=== PATIENT | male | born 1970 | race Caucasian/White ===

== ENCOUNTER 2017-11-14 12:03 | Emergency (ER) | payer MEDICAID ==
[2017-11-14 12:42] LABS: PLATELET COUNT 202 10^3/uL (150-400)
--- NOTE | 2017-11-14 14:32 | EDPHY ---
H & P Smoking Status: Current every day smoker Time Seen by Provider: 11/14/17 12:17 HPI/ROS: CHIEF COMPLAINT: Alcohol intoxication, suicidal ideation HISTORY OF PRESENT ILLNESS: 47-year-old male presents to the emergency department who was depressed and suicidal. He is acutely intoxicated with alcohol. The patient states that he was sober for over 3 years and has been drinking heavily off and on over last few months. He has felt increasingly depressed over last 6 months. He has expressed suicidal ideation. Denies pain in his chest or difficulty breathing. Denies abdominal pain. He has had a previous suicide attempt overdosing on pills and alcohol in 2005. He states that that would be his plan again today. REVIEW OF SYSTEMS: Constitutional: No fever, no chills. Eyes: No double or blurry vision. ENT: No sore throat. Respiratory: No cough, no shortness of breath. Cardiac: No chest pain. Gastrointestinal: No abdominal pain, vomiting or diarrhea. Genitourinary: No dysuria. Musculoskeletal: No neck or back pain. Skin: No rashes. Neurological: No headache. (Leatha Lombardo) Past Medical/Surgical History: Alcoholism, previous suicide attempt by overdose (Leatha Lombardo) Social History: (Leatha Lombardo) Physical Exam: General Appearance: Alert, no distress. Smells strongly of alcohol. No visible signs of trauma to his head. Eyes: Pupils equal and round. Extraocular motions are all intact. ENT: Mouth: Mucous membranes moist. Respiratory: No wheezing, rhonchi, or rales, lungs are clear to auscultation. Cardiovascular: Regular rate and rhythm. Gastrointestinal: Abdomen is soft and nontender, no masses, no rebound or guarding, bowel sounds normal. Neurological: Alert and oriented x 3, cranial nerves II through XII grossly intact Skin: Warm and dry, no rashes. Musculoskeletal: Nontender to palpate along the cervical, thoracic or lumbar spine. Neck is supple. Extremities: Full range of motion and no peripheral edema. Psychiatric: Patient is oriented X 3, there is no agitation. (Leatha Lombardo) Constitutional: Initial Vital Signs Temperature (C) 36.8 C 11/14/17 12:06 Heart Rate 124 H 11/14/17 12:06 Respiratory Rate 18 11/14/17 12:06 Blood Pressure 119/75 11/14/17 12:06 O2 Sat (%) 96 11/14/17 12:06 O2 Delivery Mode Room Air Allergies/Adverse Reactions: No Known Allergies Allergy (Verified 11/14/17 12:06) Home Medications: Medication Instructions Recorded NK [No Known Home Meds] 11/14/17 Medical Decision Making ED Course/Re-evaluation: The patient was placed on a detainer. Laboratory studies are pending. When he is clinically sober and has been medically cleared, he will be evaluated by mental health. The patient apparently went to [facility] today and they sent him here voluntarily to the emergency department for evaluation. Patient had a repeat ETOH breath of 201. He was beginning to feel extremely anxious and felt like he was experiencing symptoms of withdrawal. He had 2 mg of Ativan p. O.. He had an IV placed and was given IV normal saline. (Leatha Lombardo) I took over care of this patient at 5:00 p.m.. This patient is here for alcohol intoxication and suicidal ideation. The patient is currently on a detainer. The patient has had some withdrawal symptoms and has been given IV fluids and some Ativan. The patient is awaiting behavioral health evaluation. 10:30 p.m., the patient has been seen and evaluated by Behavioral Health. We are waiting their recommendation on disposition. 11:00 p.m., spoke with Behavioral Health. The patient is not suicidal. They feel the patient is safe for discharge. They have provided follow-up for a consultation at [facility] for their detox program. The patient is also to follow up with [facility]. The patient is in agreement to do this. I will send the patient home with a take-home pack of Ativan. The patient states that he drinks secondary to anxiety. The patient understands his follow- up. Return to emergency department precautions were discussed with him. All of his questions were answered. He was discharged in good condition with a sober ride. (Soha Fry) Differential Diagnosis: Depression including functional and major depression, situational depression, medication side effect, drugs and alcohol abuse. (Leatha Lombardo) - Data Points Laboratory Results: Laboratory Results 11/14/17 12:25 11/14/17 12:25 11/14/17 11/14/17 11/14/17 12:25 12:25 12:25 WBC 3.81 10^3/uL 10^3/uL (3.80-9.50) RBC 5.21 10^6/uL 10^6/uL (4.40-6.38) Hgb 16.3 g/dL g/dL (13.7-17.5) Hct 46.5 % % (40.0-51.0) MCV 89.3 fL fL (81.5-99.8) MCH 31.3 pg pg (27.9-34.1) MCHC 35.1 g/dL g/dL (32.4-36.7) RDW 14.3 % % (11.5-15.2) Plt Count 202 10^3/uL 10^3/uL (150-400) MPV 8.8 fL fL (8.7-11.7) Neut % (Auto) 43.8 % % (39.3-74.2) Lymph % (Auto) 43.6 % % (15.0-45.0) [place] % (Auto) 10.8 % % (4.5-13.0) Eos % (Auto) 0.5 % L % (0.6-7.6) Baso % (Auto) 1.0 % % (0.3-1.7) Nucleat RBC Rel Count 0.0 % % (0.0-0.2) Absolute Neuts (auto) 1.67 10^3/uL L 10^3/uL (1.70-6.50) Absolute Lymphs (auto) 1.66 10^3/uL 10^3/uL (1.00-3.00) Absolute Monos (auto) 0.41 10^3/uL 10^3/uL (0.30-0.80) Absolute Eos (auto) 0.02 10^3/uL L 10^3/uL (0.03-0.40) Absolute Basos (auto) 0.04 10^3/uL 10^3/uL (0.02-0.10) Absolute Nucleated RBC 0.00 10^3/uL 10^3/uL (0-0.01) Immature Gran % 0.3 % % (0.0-1.1) Immature Gran # 0.01 10^3/uL 10^3/uL (0.00-0.10) Sodium 145 mEq/L mEq/L (135-145) Potassium 3.7 mEq/L mEq/L (3.3-5.0) Chloride 106 mEq/L mEq/L (97-110) Carbon Dioxide 20 mEq/l L mEq/l (22-31) Anion Gap 19 mEq/L H mEq/L (8-16) BUN 3 mg/dL L mg/dL (7-23) Creatinine 0.8 mg/dL mg/dL (0.7-1.3) Estimated GFR > 60 Glucose 101 mg/dL H mg/dL (70-100) Calcium 8.9 mg/dL mg/dL (8.5-10.4) Urine Opiates Screen NEGATIVE (NEGATIVE) Urine Barbiturates NEGATIVE (NEGATIVE) Ur Phencyclidine Scrn NEGATIVE (NEGATIVE) Ur Amphetamine Screen NEGATIVE (NEGATIVE) U Benzodiazepines Scrn NEGATIVE (NEGATIVE) Urine Cocaine Screen NEGATIVE (NEGATIVE) U Marijuana (THC) Screen NEGATIVE (NEGATIVE) Ethyl Alcohol 325 mg/dL H mg/dL (0-10) Medications Given: Discontinued Medications Sodium Chloride (Ns) 1,000 mls @ 0 mls/hr IV ONCE ONE PRN Reason: Wide Open Stop: 11/14/17 15:05 Last Admin: 11/14/17 15:11 Dose: Not Given Sodium Chloride (Ns) 2,000 mls @ 0 mls/hr IV ONCE ONE; Wide Open PRN Reason: Protocol Stop: 11/14/17 15:08 Last Admin: 11/14/17 15:11 Dose: 2,000 mls Lorazepam (Ativan) 2 mg PO EDNOW ONE Stop: 11/14/17 14:54 Last Admin: 11/14/17 15:00 Dose: 2 mg Lorazepam (Ativan Injection) 1 mg IVP EDNOW ONE Stop: 11/14/17 16:42 Last Admin: 11/14/17 16:42 Dose: 1 mg Lorazepam (Ativan Injection) 2 mg IVP EDNOW ONE Stop: 11/14/17 18:21 Last Admin: 11/14/17 18:24 Dose: 2 mg Lorazepam (Ativan Injection) 2 mg IVP EDNOW ONE Stop: 11/14/17 20:40 Last Admin: 11/14/17 20:41 Dose: 2 mg Departure - Departure Disposition: Home, Routine, Self-Care Clinical Impression: Situational depression Alcohol intoxication Qualifiers: Complication of substance-induced condition: uncomplicated Qualified Code(s): F10.920 - Alcohol use, unspecified with intoxication, uncomplicated Condition: Good Instructions: Alcohol Withdrawal (ED), Depression (ED) Additional Instructions: Read and follow provided instructions. Follow-up with [facility] as instructed by Behavioral Health. Your are also to follow up with [facility] for admission into their detox program. Take medication as prescribed for anxiety and alcohol withdrawal. Ativan 1 mg tablets: You can take 1 every 6 hr as needed for anxiety. Do not drink alcohol. Return to the emergency department for worsening depression, suicidal thoughts or other serious concerns. Referrals: [facility] [Outside] - As per Instructions
[2017-11-14] MEDS ORDERED: LORazepam 1 MG TAB PO ONE (14:53)
[2017-11-14] MEDS ORDERED: NS 1,000 ML IV ONE (15:04)
[2017-11-14] MEDS ORDERED: NS 2,000 ML IV ONE (15:07)
[2017-11-14] MEDS ORDERED: LORazepam 2 MG/ML INJ ONE ×2 (16:38→20:35)
[2017-11-14] MEDS ORDERED: LORazepam 2 MG/ML INJ IVP ONE ×3 (16:41→20:39)
[2017-11-14] MEDS ORDERED: LORAZEPAM 1 MG PREPACK#4 BTL TAKEHOME ONE (23:10)
[2017-11-14 23:54] VITALS: BP 130/92
== END 2017-11-15 00:05 | disposition home or self-care (01) ==
DX: F43.21 Adjustment disorder with depressed mood (principal); F10.920 Alcohol use, unspecified with intoxication, uncomplicated; E86.9 Volume depletion, unspecified; F17.200 Nicotine dependence, unspecified, uncomplicated
CPT/HCPCS: 80305; 96374; G0480; J2060